=== PATIENT | female | born 1965 | race Caucasian/White ===

== ENCOUNTER 2018-02-27 05:49 | Emergency (ER) | payer BC ==
[~2018-02-27] VITALS: Ht 157.5 cm; Wt 58.9 kg
[2018-02-27] MEDS ORDERED: FISH OIL1 IU PO (05:58)
[2018-02-27] MEDS ORDERED: FIBER0.52 GM PO (05:58)
[2018-02-27 07:24] LABS: EOS # 0.2 (0.04-0.40); EOS % 3.1 % (1.0-5.0); HEMATOCRIT 43.4 % (37.0-47.0); HEMOGLOBIN 14.5 g/dL (12.5-16.0); LYMPH# 1.1 (1.50-4.00); MEAN CELL VOLUME 96 fl (78-100); MEAN CORPUSCULAR HEMOGLOBIN 32 pg (27-31); MEAN CORPUSCULAR HGB CONC 33 g/dL (33-37); MEAN PLATELET VOLUME 10.3 fl (7.4-10.4); MONO # 0.5 (0.20-0.80); NEU # 4.6 (1.40-6.50); PLATELET COUNT 213 K/mm3 (130-400); RED BLOOD COUNT 4.54 M/mm3 (4.10-5.30); RED CELL DISTRIBUTION WIDTH 13.8 % (11.5-14.5); WHITE BLOOD COUNT 6.4 K/mm3 (4.8-10.8)
[2018-02-27 07:33] LABS: ALBUMIN 3.9 g/dL (3.5-5.0); BUN/CREATININE RATIO 35.2 (6.0-26.0); CALCIUM 8.9 mg/dL (8.4-10.2); POTASSIUM 3.9 mmol/L (3.6-5.0); TOTAL BILIRUBIN 0.4 mg/dL (0.2-1.3); TOTAL PROTEIN 6.8 g/dL (6.3-8.2)
[2018-02-27 07:49] LABS: URINE APPEARANCE CLOUDY; URINE BILIRUBIN NEGATIVE (NEGATIVE); URINE BLOOD 250 ery/uL (NEGATIVE); URINE COLOR BROWN; URINE KETONE 1+ (NEGATIVE); URINE LEUKOCYTE ESTERASE TRACE (NEGATIVE); URINE NITRATE NEGATIVE (NEGATIVE); URINE PROTEIN(semi-quant) 2+ mg/dL (NEGATIVE); URINE UROBILINOGEN NORMAL (NORMAL)
[2018-02-27] MEDS ORDERED: NORCO 325 MG-51 TA1 PO (08:07)
[2018-02-27 08:19] VITALS: BP 126/70
== END 2018-02-27 08:17 | disposition home or self-care (01) ==
LOC: ED 05:49
PROVIDERS: Nurse Practitioner Primary Care
DX: N20.0 Calculus of kidney (principal)
CPT/HCPCS: J1885; J2405; Q9967

== ENCOUNTER → 2018-03-01 | Outpatient (CLI) | payer BC ==
[2018-02-27 08:19] VITALS: BP 126/70
[~2018-03-01] MED LIST: FIBER0.52 GM PO; FISH OIL1 IU PO; NORCO 325 MG-51 TA1 PO
== END ==
LOC: LAB 09:17
DX: R73.9 Hyperglycemia, unspecified (principal); Z88.0 Allergy status to penicillin

== ENCOUNTER → 2018-05-30 | Outpatient (CLI) | payer OTHER ==
[2018-05-30 10:11] LABS: HEMATOCRIT 49.1 % (37.0-47.0); HEMOGLOBIN 16.3 g/dL (12.5-16.0); MEAN CELL VOLUME 96 fl (78-100); MEAN CORPUSCULAR HEMOGLOBIN 32 pg (27-31); MEAN CORPUSCULAR HGB CONC 33 g/dL (33-37); MEAN PLATELET VOLUME 9.4 fl (7.4-10.4); PLATELET COUNT 228 K/mm3 (130-400); RED BLOOD COUNT 5.14 M/mm3 (4.10-5.30); RED CELL DISTRIBUTION WIDTH 13.8 % (11.5-14.5); WHITE BLOOD COUNT 5.4 K/mm3 (4.8-10.8)
[2018-05-30 10:59] LABS: ALBUMIN 4.4 g/dL (3.5-5.0); BUN/CREATININE RATIO 27.7 (6.0-26.0); CALCIUM 9.2 mg/dL (8.4-10.2); POTASSIUM 4.4 mmol/L (3.6-5.0); TOTAL BILIRUBIN 0.6 mg/dL (0.2-1.3); TOTAL PROTEIN 7.7 g/dL (6.3-8.2)
[2018-05-30 11:11] LABS: LYMPHOCYTE 19 % (20-51); MONOCYTE 6 % (3-10); NEUTROPHILS 63 % (42-75)
== END ==
LOC: RAD 09:50
PROVIDERS: Family Medicine
DX: Z01.419 Encounter for gynecological examination (general) (routine) without abnormal findings (principal); N28.89 Other specified disorders of kidney and ureter; R73.9 Hyperglycemia, unspecified

== ENCOUNTER → 2018-06-22 | Outpatient (CLI) | payer OTHER | LOC: MAMMO 15:50 | DX: Z12.31 Encounter for screening mammogram for malignant neoplasm of breast (principal) ==